=== PATIENT | male | born 1950 ===

== ENCOUNTER 2024-10-24 19:55 | Inpatient (IN) | payer MEDICARE ==
[~2024-10-24] VITALS: Ht 188 cm; Wt 165.5 kg
[2024-10-24 20:23] LABS: Calcium, Ionized (POC) 1.03 mmol/L (1.10-1.46); Chloride (POC) 99 mmol/L (98-108); Creatinine (POC) 1.2 mg/dL (0.8-1.3); Glucose (ISTAT POC) 176 mg/dL (70-99); Hematocrit (POC) 38.0 % (41.0-53.0); Hemoglobin (POC) 12.9 g/dL (13.5-17.5); Potassium (POC) 2.8 mmol/L (3.5-5.5); Sodium (POC) 137 mmol/L (135-148); Total CO2 (POC) 24 mmol/L (21-32)
[2024-10-24 21:05] LABS: Source, Urine Clean Catch
[2024-10-24 21:09] LABS: BASOPHILS ABSOLUTE AUTO 0.03 K/mm3 (0.00-0.23); BASOPHILS PERCENT AUTO 0 % (0-2); EOSINOPHILS ABSOLUTE AUTO 0.02 K/mm3 (0.00-0.68); EOSINOPHILS PERCENT AUTO 0 % (0-6); Hematocrit 38.0 % (37.0-53.0); Hemoglobin 12.7 g/dL (13.5-17.5); IMMATURE GRAN ABSOLUTE AUTO 0.04 K/mm3 (0.00-0.10); IMMATURE GRAN PERCENT AUTO 0 % (0-1); LYMPHOCYTES ABSOLUTE AUTO 0.25 K/mm3 (0.84-5.20); LYMPHOCYTES PERCENT AUTO 2 % (21-46); MONOCYTES ABSOLUTE AUTO 0.39 K/mm3 (0.16-1.47); MONOCYTES PERCENT AUTO 3 % (4-13); Mean Corpuscular HGB Conc 33.4 g/dL (31.5-36.5); Mean Corpuscular Volume 88 fL (80-100); NEUTROPHILS ABSOLUTE AUTO 12.33 K/mm3 (1.96-9.15); NEUTROPHILS PERCENT AUTO 94 % (41-73); NRBC ABSOLUTE 0.00 K/mm3 (0.00-0.02); NRBC Auto 0.0 /100 WBC (0.0-0.2); Platelet Count 350 K/mm3 (150-400); RDW Coefficient Variation 14.3 % (11.7-14.2); RDW Standard Deviation 45.7 fL (35.1-46.3)
[2024-10-24 21:10] LABS: Bilirubin, Urine Neg (Neg); Color, Urine Yellow (P-Yellow); Glucose Qualitative, Urine Neg (Neg); Ketones, Urine Neg (Neg); Leukocyte Esterase, Urine 3+ (Neg); Protein, Urine 3+ (Neg); Specific Gravity, Urine 1.010 (1.003-1.022); Urobilinogen, Urine 1+ (Normal)
[2024-10-24 21:27] LABS: White Blood Cells, Urine 25-50 /hpf (0-5)
[2024-10-24 21:29] LABS: Alanine Aminotransfer (ALT/SGP 53.0 U/L (12-78); Albumin, Blood 3.0 g/dL (3.4-5.0); Albumin/Globulin Ratio 0.8 (0.8-1.8); Anion Gap 9.0 mmol/L (3-11); Aspartate Aminotrans (AST/SGOT 38.0 U/L (12-37); Bilirubin, Total 0.9 mg/dL (0.1-1.0); Blood Urea Nitrogen 16.0 mg/dL (8-24); CO2, Blood 28.0 mmol/L (21-32); Calcium, Blood 8.5 mg/dL (8.5-10.1); Chloride, Blood 101.0 mmol/L (98-108); Creatinine, Blood 1.05 mg/dL (0.60-1.20); Globulin, Blood 3.7 g/dL (2.2-4.0); Glucose, Blood 175.0 mg/dL (70-99); Potassium, Blood 3.0 mmol/L (3.5-5.5); Sodium, Blood 135.0 mmol/L (136-145); Total Protein, Blood 6.7 g/dL (6.4-8.2)
[2024-10-24 22:47] LABS: pH Blood Venous 7.38 (7.34-7.37)
[2024-10-24] MEDS ORDERED: CefTRIAXone Sodium 2,000 MG in NS 100 ML IV ONE (23:35)
[2024-10-25] VITALS (16 sets, daily range): BP systolic 98–130; BP diastolic 65–83
[2024-10-25] MEDS ORDERED: Magnesium Hydroxide Conc 10 ML UDC PO PRN (00:50)
[2024-10-25] MEDS ORDERED: Insulin Human Lispro 100 Units/ML 3ML Syringe SC ONE (01:00)
[2024-10-25 04:05] LABS: BASOPHILS ABSOLUTE AUTO 0.04 K/mm3 (0.00-0.23); BASOPHILS PERCENT AUTO 0 % (0-2); EOSINOPHILS ABSOLUTE AUTO 0.01 K/mm3 (0.00-0.68); EOSINOPHILS PERCENT AUTO 0 % (0-6); Hematocrit 36.6 % (37.0-53.0); Hemoglobin 12.2 g/dL (13.5-17.5); IMMATURE GRAN ABSOLUTE AUTO 0.04 K/mm3 (0.00-0.10); IMMATURE GRAN PERCENT AUTO 0 % (0-1); LYMPHOCYTES ABSOLUTE AUTO 0.48 K/mm3 (0.84-5.20); LYMPHOCYTES PERCENT AUTO 4 % (21-46); MONOCYTES ABSOLUTE AUTO 1.14 K/mm3 (0.16-1.47); MONOCYTES PERCENT AUTO 9 % (4-13); Mean Corpuscular HGB Conc 33.3 g/dL (31.5-36.5); Mean Corpuscular Volume 88 fL (80-100); NEUTROPHILS ABSOLUTE AUTO 11.66 K/mm3 (1.96-9.15); NEUTROPHILS PERCENT AUTO 87 % (41-73); NRBC ABSOLUTE 0.00 K/mm3 (0.00-0.02); NRBC Auto 0.0 /100 WBC (0.0-0.2); Platelet Count 315 K/mm3 (150-400); RDW Coefficient Variation 14.6 % (11.7-14.2); RDW Standard Deviation 46.5 fL (35.1-46.3)
[2024-10-25 04:25] LABS: Alanine Aminotransfer (ALT/SGP 53.0 U/L (12-78); Albumin, Blood 2.8 g/dL (3.4-5.0); Albumin/Globulin Ratio 0.8 (0.8-1.8); Anion Gap 10.0 mmol/L (3-11); Aspartate Aminotrans (AST/SGOT 60.0 U/L (12-37); Bilirubin, Total 0.9 mg/dL (0.1-1.0); Blood Urea Nitrogen 20.0 mg/dL (8-24); CO2, Blood 27.0 mmol/L (21-32); Calcium, Blood 7.9 mg/dL (8.5-10.1); Chloride, Blood 97.0 mmol/L (98-108); Creatinine, Blood 1.19 mg/dL (0.60-1.20); Globulin, Blood 3.7 g/dL (2.2-4.0); Glucose, Blood 383.0 mg/dL (70-99); Potassium, Blood 3.7 mmol/L (3.5-5.5); Sodium, Blood 130.0 mmol/L (136-145); Total Protein, Blood 6.5 g/dL (6.4-8.2)
[2024-10-25] MEDS ORDERED: Formoterol/Mometasone MDI 5/100 mcg 13 GM INH SCH (04:30)
[2024-10-25] MEDS ORDERED: Insulin Human Lispro 100 Units/ML 3ML Syringe SC SCH ×2 (07:30)
[2024-10-25] MEDS ORDERED: Lactobacil 2-S.Thermo-Bifido 1 1 Cap PO SCH (09:00)
[2024-10-25] MEDS ORDERED: Enoxaparin 40 MG/0.4 ML SYR SC SCH (09:00)
[2024-10-25] MEDS ORDERED: Insulin Pump Cartridge MISC SC SCH (10:00)
[2024-10-25] MEDS ORDERED: Torsemide 20 MG TAB PO SCH (14:00)
--- NOTE | 2024-10-25 17:52 | NUR ---
PT IS NOW ABLE TO USE HIS OWN INSILIN PUMP PER MD ORDER, PT IS HAPPY ABOUT THAT. HE HAS HAD A BM TODAY. HE WAS ALSO BATHED, ROOM REARRANGED TO ACCOMODATE HIM STAYING IN CHAIR.
[2024-10-25] MEDS ORDERED: CefTRIAXone Sodium 2,000 MG in NS 100 ML IV SCH (21:00)
[2024-10-25] MEDS ORDERED: Insulin Glargine-Yfgn 100 Unit/mL 3 ML SYR SC SCH (21:00)
--- NOTE | 2024-10-25 23:53 | NUR ---
TRANSFER *LATE ENTRY* PT TRANSFERRED TO PCU 5 FROM ICU 12 APPROX 2300 VIA W/C. AOX4. VSS. DENIES PAIN, N/V, DIZZINESS OR TREMORS. TELE NSR. ORIENTED TO NEW & CALL LIGHT. WILL MONITOR.
[2024-10-26 04:42] VITALS: BP 119/64
--- NOTE | 2024-10-26 04:45 | NUR ---
SHIFT SUMMARY NO ACUTE CHANGES SINCE ARRIVING TO UNIT. VSS. TELE NSR HR 90-100. SPO2 >92% ON 2L, TITRATED TO 1L & SPO2 @94%. PT DENIES GENERAL PAIN OR DISCOMFORT W/VOIDING. HAD BM THIS SHIFT. REPORTS GOOD APPETITE. DENIES N/V. STATES HE DOES GET DYSPNIC W/ACTIVITY BUT THAT HAS BEEN BASELINE RECENTLY @HOME. UP W/CANE & FWW FOR AMBULATION, SBY ASSIST TO HELP W/CORDS, OTHERWISE IND. CALL LIGHT IN REACH & PT ABLE TO MAKE NEEDS KNOWN.
[2024-10-26 05:42] LABS: Hematocrit 36.3 % (37.0-53.0); Hemoglobin 12.5 g/dL (13.5-17.5); Mean Corpuscular HGB Conc 34.4 g/dL (31.5-36.5); Mean Corpuscular Volume 88 fL (80-100); NRBC ABSOLUTE 0.00 K/mm3 (0.00-0.02); NRBC Auto 0.0 /100 WBC (0.0-0.2); Platelet Count 297 K/mm3 (150-400); RDW Coefficient Variation 14.3 % (11.7-14.2); RDW Standard Deviation 46.2 fL (35.1-46.3)
[2024-10-26 06:04] LABS: Anion Gap 6.0 mmol/L (3-11); Blood Urea Nitrogen 19.0 mg/dL (8-24); CO2, Blood 30.0 mmol/L (21-32); Calcium, Blood 8.4 mg/dL (8.5-10.1); Chloride, Blood 99.0 mmol/L (98-108); Creatinine, Blood 1.01 mg/dL (0.60-1.20); Glucose, Blood 142.0 mg/dL (70-99); Potassium, Blood 2.9 mmol/L (3.5-5.5); Sodium, Blood 132.0 mmol/L (136-145)
[2024-10-26 07:20] VITALS: BP 107/71
[2024-10-26] MEDS ORDERED: Potassium Chl 20MEQ/Water100ML 100 ML IV SCH (07:50)
[2024-10-26] MEDS ORDERED: NS 250 ML IV PRN (08:10)
[2024-10-26 11:12] VITALS: BP 113/65
--- NOTE | 2024-10-26 15:04 | NUR ---
PATIENT ALERT AND ORIENTED. FOLLOWING COMMANDS. SBA WITH FWW. DENIES PAINS. CHRONIC NEUROPATHY. SITTING IN RECLINER THIS AM AND AFTERNOON. DENIES BED AT THIS TIME. PATIENT ALSO IN HOME CLOTHES. DENIES GOWN/BEDBATH/SHOWER. PERSONAL INSULIN PUMP IN PLACE. PATIENT USING PERSONAL INSULIN PUMP WITH MD ORDERS. BLOOD SUGAR CHECKS AT HOSPITAL MATCHING PATIENTS PERSONAL DEXCOM IN LEFT UPPER ARM. ON 1L NASAL CANNULA THIS AM, TITRATED TO ROOM AIR AND MAINTAINING SATURATIONS AT REST AND ACTIVITY. CT PE STUDY COMPLETED THIS AM. EVEN AND UNLABORED RESPIRATIONS AT REST. MINIMAL SOB WITH EXCERTION. DENIES COUGH. TELE SHOWING SR WITH HR 90-100'S. SBP 100-110'S. LYMPHEDEMA WITH NINFA HOSE IN PLACE. DENIES CHEST PAIN/PRESSURE.PALPITATIONS. PPP. MADE MEDICAL STATUS THIS AFTERNOON WITH NO TELE. BOWEL TONES PRESENT. TOLERATING PO DIET. UP TO BATHROOM WITH ASSISTANCE. DENIES ABDOMINAL PAIN/NAUSEA. DR. CHANDLER TO BEDSIDE THIS AM AND THIS RN PRESENT. SISTER ISABELLE CALLED BY THIS RN AND UPDATED ON PLAN OF CARE. IV POTASSIUM INFUSING PER EMAR. PATIENT SITTING IN RECLINER AND DENIES NEEDS AT THIS TIME.
[2024-10-26 15:16] VITALS: BP 129/90
--- NOTE | 2024-10-26 17:37 | NUR ---
SHIFT SUMMARY: NO ACUTE CHANGES. PATIENT REMAINS ALERT AND ORIENTED. ECHO COMPLETED TODAY. PHYSICAL THERAPY IN TO SEE PATIENT. POTASSIUM REPLACED VIA IV AND PO. UP IN RECLINER EATING DINNER AT THIS TIME. PATIENT CONTINUES TO MANAGE OWN INSULIN PUMP. UP TO BATHROOM WITH SBA. DENIES NEEDS AT THIS TIME. CALL LIGHT IN REACH.
[2024-10-26 19:42] VITALS: BP 129/71
[2024-10-27 05:35] LABS: Anion Gap 8.0 mmol/L (3-11); Blood Urea Nitrogen 15.0 mg/dL (8-24); CO2, Blood 30.0 mmol/L (21-32); Calcium, Blood 8.9 mg/dL (8.5-10.1); Chloride, Blood 102.0 mmol/L (98-108); Creatinine, Blood 0.95 mg/dL (0.60-1.20); Glucose, Blood 122.0 mg/dL (70-99); Potassium, Blood 3.2 mmol/L (3.5-5.5); Sodium, Blood 137.0 mmol/L (136-145)
[2024-10-27 05:58] VITALS: BP 127/79
--- NOTE | 2024-10-27 06:44 | NUR ---
SHIFT SUMMARY PATIENT IS ALERT AND ORIENTED. PATIENT HAS HAD NO ACUTE EVENTS THIS SHIFT. VITAL SIGNS REVIEWED. PATIENT IS A TRANSFER FROM PCU. PATIENT HAS BEEN MONITORING CBG PUMP WITH NO ISSUES THIS SHIFT. PATIENT HAS BEEN IND THIS SHIFT. PATIENT HAS NO COMPLAINTS OF SOB, PAIN, NAUSEA OR VOMITTING. BED IN LOCKED AND LOWEST POSITION. CALL LIGHT IN PLACE. BED IN LOWEST AND LOCKED POSITION.
[2024-10-27 07:52] VITALS: BP 131/72
[2024-10-27] MEDS ORDERED: TORSE20 PO ×2 (12:12→14:02)
[2024-10-27] MEDS ORDERED: HUMALOG100 UNIT/1 SC (12:13)
[2024-10-27] MEDS ORDERED: REGULOID POWDE PO (12:15)
[2024-10-27] MEDS ORDERED: ZOCOR20 MG PO (12:16)
[2024-10-27] MEDS ORDERED: FLUT1DIS5 INH (12:17)
[2024-10-27] MEDS ORDERED: DULO30 PO (12:17)
[2024-10-27] MEDS ORDERED: HYDCHL12.5 PO (12:17)
[2024-10-27] MEDS ORDERED: LOSA25 PO (12:17)
[2024-10-27] MEDS ORDERED: Vitamin B Comple1 EA PO (12:18)
[2024-10-27] MEDS ORDERED: Vitamin D1000 UNI1 PO (12:18)
[2024-10-27] MEDS ORDERED: ALPHA LIPOIC A600 MG PO (12:19)
[2024-10-27] MEDS ORDERED: VISBIOME 112.51 EACH PO (12:19)
[2024-10-27] MEDS ORDERED: MEGA 3-6-9 SO1233 MG PO (12:20)
[2024-10-27] MEDS ORDERED: CETI5 PO (12:20)
[2024-10-27] MEDS ORDERED: CYTO-Q T/F8 MG/1 ML PO (12:21)
[2024-10-27] MEDS ORDERED: MULVITA PO (12:21)
[2024-10-27] MEDS ORDERED: CHROMIUM200 MCG PO (12:22)
[2024-10-27] MEDS ORDERED: CEFU500T30 PO (14:02)
[2024-10-27] MEDS ORDERED: POTCHL20ER PO (14:02)
--- NOTE | 2024-10-27 17:07 | NUR ---
DISCHARGE NOTE PATIENT EDUCATED ON NEW PRESCRIPTIONS AND PRESCRIPTION CHANGES TO HOME MED. PT TO FOLLOW UP WITH PCP NEXT AVAIL APPT. PRESCRIPTIONS FAXED TO [facility]. IV REMOVED. PATIENT BELONGINGS GATHERED AND RETURNED. NO NEW QUESTIONS OR CONCERNS PRIOR TO DC.
== END 2024-10-27 17:44 | disposition home or self-care (01) | DRG 871 ==
LOC: ER 19:55 → PCU 10-25 00:46 → ICUE 10-25 00:46 → PCU 10-25 23:11 → MEDS 10-26 22:35 → ENPENDDIS 10-27 11:32 → MEDS 10-27 17:44
PROVIDERS: Internal Medicine; Student in an Organized Health Care Education/Training Program; ADMIT Student in an Organized Health Care Education/Training Program
DX: A41.9 Sepsis, unspecified organism (principal); J18.9 Pneumonia, unspecified organism; E87.3 Alkalosis; N30.01 Acute cystitis with hematuria; E87.20 Acidosis, unspecified; I45.10 Unspecified right bundle-branch block; E87.6 Hypokalemia; D64.9 Anemia, unspecified; R65.20 Severe sepsis without septic shock; E10.42 Type 1 diabetes mellitus with diabetic polyneuropathy; G47.33 Obstructive sleep apnea (adult) (pediatric); Z88.5 Allergy status to narcotic agent; Z88.8 Allergy status to other drugs, medicaments and biological substances; Z79.4 Long term (current) use of insulin; Z96.41 Presence of insulin pump (external) (internal)
CPT/HCPCS: 36415; 71045; 71260; 80047; 80048; 80053; 81001; 82803; 82947; 83605; 83880; 85014; 85025; 85027; 85379; 87077; 87086; 87186; 93005; 93010; 93306; 94640; 94664; 94760; 94762; 96361; 96374; 97116; 97161; 97530; 99285-25; A9270; J0696; J1650; J1815; J1938; J3480; J7050; J7120; Q9967